=== PATIENT | female | born 1970 | race Caucasian/White ===

== ENCOUNTER 2016-06-11 01:20 | Emergency (ER) | payer OTHER, BC ==
[~2016-06-11] VITALS: Ht 170.2 cm; Wt 55.0 kg
[2016-06-11 01:20] VITALS: O2SAT 100
[2016-06-11] MEDS ORDERED: ceFAZolin 2 GM PREMIX 50 ML ONE (01:27)
[2016-06-11] MEDS ORDERED: ceFAZolin 2 GM PREMIX 50 ML IV STA (01:45)
[2016-06-11] MEDS ORDERED: DIPHTH/TETANUS/ACEL PERTUSSIS (BOOSTER) 0.5 ML VIAL/PFS IM ONE ×2 (01:45→03:28)
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
[2016-06-11 01:51] LABS: AUTOMATED NEUTROPHIL # 6.5 TH/MM3 (1.8-7.7); BASOPHIL # 0.1 TH/MM3 (0-0.2); BASOPHIL % 0.7 % (0.0-2.0); EOSINOPHIL # 0.2 TH/MM3 (0-0.4); EOSINOPHIL % 1.8 % (0.0-4.0); HEMATOCRIT 37.6 % (35.0-46.0); HEMO FLAGS DIFF FINAL; LYMPH % 30.2 % (9.0-44.0); LYMPHOCYTE # 3.3 TH/MM3 (1.0-4.8); MEAN CELL VOLUME 87.1 FL (80.0-100.0); MEAN CORPUSCULAR HEMOGLOBIN 29.3 PG (27.0-34.0); MEAN CORPUSCULAR HGB CONC 33.7 % (32.0-36.0); MONO % 8.2 % (0.0-8.0); NEUT % 59.1 % (16.0-70.0); PLATELET COUNT 317 TH/MM3 (150-450); RED BLOOD COUNT 4.31 MIL/MM3 (4.00-5.30); RED CELL DISTRIBUTION WIDTH 13.4 % (11.6-17.2); WHITE BLOOD COUNT 10.9 TH/MM3 (4.0-11.0)
[2016-06-11 01:53] LABS: I-STAT POTASSIUM 3.7 MMOL/L (3.5-4.9)
[2016-06-11] MEDS ORDERED: IOHEXOL 350 MG/ML 10 ML VIAL (for RAD DIAG) IV ONE (02:00)
[2016-06-11 02:03] LABS: APTT (PATIENT) 28.7 SEC (24.3-30.1); INTERNATIONAL NORMALIZED RATIO 0.9 RATIO; PROTHROMBIN TIME - PATIENT 10.2 SEC (9.8-11.6)
[2016-06-11 02:05] VITALS: BP 144/69; PULSE 92; RESP 18; O2SAT 100
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
[2016-06-11] MEDS ORDERED: CEPH-460 PO ×2 (03:02→03:35)
[2016-06-11] MEDS ORDERED: BACI500O9 TOPICAL ×2 (03:02→03:35)
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
[2016-06-11 03:35] VITALS: BP 119/64; PULSE 83; RESP 18; O2SAT 99
== END 2016-06-11 04:52 | disposition home or self-care (01) ==
LOC: EDBD 01:20 → NEPC 01:20
DX: S00.81XA Abrasion of other part of head, initial encounter (principal); V29.50XA Motorcycle passenger injured in collision with unspecified motor vehicles in traffic accident, initial encounter; Y92.9 Unspecified place or not applicable; Z23 Encounter for immunization
CPT/HCPCS: 70450; 70486; 71010; 71260; 72125; 72170; 74177; 82435; 82565; 82947; 84132; 84295; 84520; 85025; 85610; 85730; 86850; 86900; 86901; 90715; 96374; 99291; J0690; Q9967; G0390